=== PATIENT | female | born 1945 | race Caucasian/White ===

== ENCOUNTER 2017-11-28 14:23 | Inpatient (IN) | payer OTHER ==
[~2017-11-28] VITALS: Ht 157.5 cm; Wt 44.0 kg
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
--- NOTE | ~2017-11-28 | HC ---
[facility] [place] [address] [place] [address] CONSULTATION Name: ETELVINA DURAN [facility] #: 431[facility] M.[facility] [id number] Admission: 11/28/17 Attend Phys: Felipe Baez MD Discharge: 11/30/17 Date of : 44 Report #: [id number] THIS REPORT FOR: //name// CC: Felipe NUR unknown DATE OF SERVICE: 11/29/2017 REASON FOR CONSULTATION: Nonhealing surgical wound of hip with postsurgical infection, rule out osteomyelitis. HISTORY OF PRESENT ILLNESS: The patient is a 72-year-old woman, surgical patient of Dr. Harris. She is status post right hip surgery with total hip replacement with hip prosthesis by Dr. Harris. The patient's surgical wound never completely healed, and she has developed an open sinus type wound of the mid incision of the hip. This had some redness, pain, tenderness, swelling and drainage. The patient was therefore admitted. She is on IV antibiotics. PAST MEDICAL HISTORY: The patient is nondiabetic. REVIEW OF SYSTEMS: Pain at the incision site. PHYSICAL EXAMINATION: GENERAL: Shows a well-appearing woman, appearing her stated age. She is afebrile. The patient is alert, pleasant, conversant. HEENT: Mucous membranes are moist. NECK: Supple. LUNGS: Respirations unlabored. ABDOMEN: Soft. EXTREMITIES: Wound shows a long incision in the lateral right hip, mostly all the incision has healed. In the mid portion of the incision, there is a small 4 x 4 mm open wound with granulation tissue. This was probed with a cotton-tipped applicator. This has very little depth. Wound cultures are taken. The surrounding tissues are somewhat brawny, indurated, mildly tender and slightly red. IMPRESSION: Nonhealing surgical wound after total hip replacement, evidence of wound nonhealing and wound infection, rule out osteomyelitis. Orthopedic team has seen the patient. There are no plans for any surgical intervention at this time, and plan will be for continued IV antibiotics. Wound culture was taken at this time. There is no wound pack. Wound care will consist of a simple foam border dressing. We will await wound cultures. Further plans from the [facility] [address] [place] [address] CONSULTATION Name: ETELVINA DURAN Room #: 431-P DIS IN M.R.#: [id number] Admission: 11/28/17 Attend Phys: Felipe Baez MD Discharge: 11/30/17 Date of : 44 Report #: [id number] orthopedic team, which may consist of prolonged course of antibiotics. Wound care team will follow while in the hospital. By: [phone] Ladarius Mulligan MD /nt
[2017-11-28 14:41] VITALS: BP 135/56
[2017-11-28 15:51] LABS: ABSOLUTE NEUTROPHILS 11.2 thou/uL (1.4-8.2); BASOPHILS 0.6 % (0.0-2.0); EOSINOPHILS 0.6 % (0.0-3.0); HEMATOCRIT 26.8 % (37.0-47.0); HEMOGLOBIN 8.8 gm/dL (12.0-15.0); LYMPHOCYTES 9.8 % (24.0-44.0); MCH 28.5 pg (26.0-34.0); MCV 86.3 fL (80.0-100.0); MONOCYTES 10.1 % (1.0-8.0); PLATELET COUNT 485 thou/uL (150-400); POLYS 78.9 % (36.0-66.0); RDW 15.9 % (10.5-14.5); WBC 14.2 thou/uL (4.0-11.0)
[2017-11-28 16:00] LABS: CALCIUM 9.7 mg/dL (8.5-10.1); CREATININE 0.8 mg/dL (0.6-1.0); POTASSIUM 4.3 mmol/L (3.5-5.1)
[2017-11-28 17:19] VITALS: BP 135/56
[2017-11-28] MEDS ORDERED: ONDANSETRON ODT4 MG PO (17:22)
[2017-11-28 18:27] VITALS: BP 134/76
[2017-11-28] MEDS ORDERED: CLEOCIN HCL150 MG PO (18:30)
[2017-11-28] MEDS ORDERED: VENTOLIN HFA 1818 GM INH (18:30)
[2017-11-28] MEDS ORDERED: ASPIR-LOW81 MG PO (18:30)
[2017-11-28] MEDS ORDERED: SYNTHROID50 MCG PO (18:31)
[2017-11-28] MEDS ORDERED: BUSPIRONE HCL10 MG PO (18:31)
[2017-11-28] MEDS ORDERED: FOSAMAX 70 MG T70 MG PO (18:31)
[2017-11-28] MEDS ORDERED: ATIVAN1 MG PO (18:31)
[2017-11-28] MEDS ORDERED: MELATONIN3 MG PO (18:32)
[2017-11-28] MEDS ORDERED: PERCOCET 10-321 EACH PO (18:32)
[2017-11-28] MEDS ORDERED: MS CONTIN15 MG PO (18:32)
[2017-11-28] MEDS ORDERED: NAPROSYN500 MG PO (18:32)
[2017-11-28] MEDS ORDERED: ZANAFLEX4 MG PO (18:34)
[2017-11-28 20:00] VITALS: BP 143/55
[2017-11-29 05:30] VITALS: BP 134/78
[2017-11-29 06:33] LABS: HEMATOCRIT 26.7 % (37.0-47.0); HEMOGLOBIN 8.5 gm/dL (12.0-15.0); MCH 27.4 pg (26.0-34.0); MCV 85.8 fL (80.0-100.0); RBC 3.11 mil/uL (4.20-5.00); RDW 15.7 % (10.5-14.5); WBC 12.7 thou/uL (4.0-11.0)
[2017-11-29 06:50] LABS: CALCIUM 9.5 mg/dL (8.5-10.1); CREATININE 0.8 mg/dL (0.6-1.0); POTASSIUM 3.6 mmol/L (3.5-5.1)
[2017-11-29 06:56] LABS: % SATURATION 8 % (20-39); IRON 13 ug/dL (50-170); TIBC 154 ug/dL (250-450)
[2017-11-29 07:50] VITALS: BP 138/58
[2017-11-29 09:37] LABS: ABSOLUTE RETIC COUNT 0.0468 10^6/uL; OBSERVED RETIC COUNT 1.51 % (0.6-2.6)
[2017-11-29 15:30] VITALS: BP 127/56
[2017-11-29 20:03] VITALS: BP 152/73
[2017-11-30 05:00] VITALS: BP 148/72
[2017-11-30 07:50] VITALS: BP 188/85
== END 2017-11-30 19:51 | disposition short-term general hospital (02) | DRG 862 ==
LOC: ER 14:23 → EROBS 16:24 → 4E 16:24
PROVIDERS: Hospitalist; Physician Assistant; Registered Nurse
DX: T81.4XXA Infection following a procedure, initial encounter (principal); E43 Unspecified severe protein-calorie malnutrition; Z68.1 Body mass index [BMI] 19.9 or less, adult; B95.62 Methicillin resistant Staphylococcus aureus infection as the cause of diseases classified elsewhere; Z96.643 Presence of artificial hip joint, bilateral; J44.9 Chronic obstructive pulmonary disease, unspecified; M81.0 Age-related osteoporosis without current pathological fracture; F32.9 Major depressive disorder, single episode, unspecified; E03.9 Hypothyroidism, unspecified; D63.8 Anemia in other chronic diseases classified elsewhere; D72.829 Elevated white blood cell count, unspecified; G31.84 Mild cognitive impairment of uncertain or unknown etiology; R53.81 Other malaise; F41.9 Anxiety disorder, unspecified; G89.29 Other chronic pain; Y83.8 Other surgical procedures as the cause of abnormal reaction of the patient, or of later complication, without mention of misadventure at the time of the procedure; Z88.8 Allergy status to other drugs, medicaments and biological substances; Z85.118 Personal history of other malignant neoplasm of bronchus and lung; Z87.891 Personal history of nicotine dependence; Z79.899 Other long term (current) drug therapy; Y92.89 Other specified places as the place of occurrence of the external cause
CPT/HCPCS: 10183

== ENCOUNTER 2018-01-28 11:26 | Emergency (ER) | payer OTHER ==
[~2018-01-28] VITALS: Ht 157.5 cm; Wt 44.0 kg
--- NOTE | ~2018-01-28 | EKG ---
[place] [address] [facility] [employer] [place] [address] ELECTROCARDIOGRAM REPORT Name: ROGERETELVINA Room #: DEP MAURA Hernandez#: [id number] Admission: 01/28/18 Attend Phys: Discharge: 01/28/18 Date of : 44 Report #: [id number] THIS REPORT FOR: //name// [facility] ED Test Date: 2018-01-28 Test Time: 13:00:16 Pat Name: ETELVINA DURAN Department: Room: Gender: F Sales Clerk Supervisor: : 1945 Requested By: Aaron Du Order Number: [id number] MD: Rios Ellington Measurements Intervals [place] Rate: 77 P: 44 NC: 144 QRS: -24 QRSD: 83 T: 29 QT: 393 QTc: 445 Interpretive Statements Sinus rhythm Left ventricular hypertrophy No previous ECG available for comparison Electronically Signed On 01-28-2018 21:38:03 CDT by Rios Ellington [email or web address] <ELECTRONICALLY SIGNED> By: Rios Ellington MD 01/28/18 2138 1300 Chino Ellington MD /LEXX
[~2018-01-28 11:26] MED LIST: ASPIR-LOW81 MG PO; ATIVAN1 MG PO; BUSPIRONE HCL10 MG PO; CLEOCIN HCL150 MG PO; FOSAMAX 70 MG T70 MG PO; MELATONIN3 MG PO; MS CONTIN15 MG PO; NAPROSYN500 MG PO; ONDANSETRON ODT4 MG PO; PERCOCET 10-321 EACH PO; SYNTHROID50 MCG PO; VENTOLIN HFA 1818 GM INH; ZANAFLEX4 MG PO
[2018-01-28 12:00] LABS: ABSOLUTE NEUTROPHILS 9.5 thou/uL (1.4-8.2); BASOPHILS 0.8 % (0.0-2.0); EOSINOPHILS 1.4 % (0.0-3.0); HEMATOCRIT 32.3 % (37.0-47.0); HEMOGLOBIN 10.7 gm/dL (12.0-15.0); LYMPHOCYTES 13.2 % (24.0-44.0); MCH 28.3 pg (26.0-34.0); MCV 85.8 fL (80.0-100.0); MONOCYTES 8.9 % (1.0-8.0); PLATELET COUNT 330 thou/uL (150-400); POLYS 75.7 % (36.0-66.0); RBC 3.77 mil/uL (4.20-5.00); RDW 16.5 % (10.5-14.5); WBC 12.6 thou/uL (4.0-11.0)
[2018-01-28 12:06] LABS: ANION GAP 6 mmol/L (7-16); BUN 15 mg/dL (7-18); CALCIUM 9.2 mg/dL (8.5-10.1); CHLORIDE 101 mmol/L (98-107); CO2 29 mmol/L (21-32); CREATININE 0.7 mg/dL (0.6-1.0); GLUCOSE 129 mg/dL (74-106); POTASSIUM 3.3 mmol/L (3.5-5.1); SODIUM 136 mmol/L (136-145)
[2018-01-28 12:15] LABS: TROPONIN-I < 0.04 ng/mL (<0.06)
== END 2018-01-28 15:03 | disposition home or self-care (01) ==
LOC: ER 11:26
PROVIDERS: Emergency Medicine
DX: D64.9 Anemia, unspecified (principal); J44.9 Chronic obstructive pulmonary disease, unspecified; Z96.642 Presence of left artificial hip joint; Z85.118 Personal history of other malignant neoplasm of bronchus and lung; Z88.8 Allergy status to other drugs, medicaments and biological substances

== ENCOUNTER 2020-12-28 17:51 | Emergency (ER) | payer OTHER ==
[~2020-12-28] VITALS: Ht 157.5 cm; Wt 46.3 kg
--- NOTE | ~2020-12-28 | EMS ---
[place] [address] EMS Patient Care Report Name: ETELVINA DURAN Room #: REG MAURA Hernandez#: [id number] Admission: 12/28/20 Attend Phys: Discharge: Date of : 44 Report #: [id number] THIS REPORT FOR: //name// Report Transmitted: 12/28/2020 19:25 EMS Care Summary [facility], [place] Incident [id number] @ 12/28/2020 17:25 Incident Location [address] [place] [address] Patient ETELVINA DURAN Female, 75 Years 1945 Patient Address [address] [place] [address] Patient History Lung Cancer,Cardiac Murmur, Patient Allergies Sulfa, Patient Medications ASA, Chief Complaint PAIN Disposition Transported No Lights/[place] Dispatch Reason Falls Transported To [facility] Narrative RESPONDED TO FALL AT HOME WITH P36 ON SCENE. UPON ARRIVAL PT FOUND SITTING UP AGAINST WALL, ALERT AND ORIENTED. PT REPORTS TRIPPING OVER OXYGEN TANKS ADN HITTING HER HEAD ON ONE OF THEM. PT HAS MULTIPLE SKIN TEARS TO RIGHT ARM, SWELLING WITH LAC TO RIHT CHEEK BONE AND GOOSE EGG [place] [address] EMS Patient Care Report Name: ETELVINA DURAN Room #: REG MAURA Hernandez#: [id number] Admission: 12/28/20 Attend Phys: Discharge: Date of : 44 Report #: [id number] HEAD. PT DENIES LOC OR BLOOD THINNERS. PT DENIES NECK OR BACK PAIN. PT REPORTS RIGHT RIB PAIN WELL. PT TEAM CARRIED DOWNSTAIRS TO COT. PT VITALS AND 3 LEAD OBTAINED. PT TRANSPORTED TO [facility] WITH NO CHANGES. PT TEAM LIFTED TO BED FROM COT WITH HANDRAILS UP. REPORT GIVEN TO NURSE. Initial Vitals @17:40P: 46,SpO2: 82, @17:45P: 120,BP: 128/74,CO: 0,SpO2: 84, @17:42P: 136,SpO2: 84, @17:43P: 120,SpO2: 82, @17:42P: 128,SpO2: 83, @17:41P: 132,SpO2: 89, @17:41P: 142,R: 18,BP: 124/74,Pain: 10/10,GCS: 15,CO: 0,SpO2: 91,Revised Trauma: 12, Assessments @17:32MENTAL:Person Oriented,Time Oriented,Place Oriented,Event Oriented,SKIN:No Abnormalities,HEENT:Head/Face: Swelling,Head/Face: LAC,Head/Face: GUS,Neck/Airway: No Abnormalities,LUNG SOUNDS:General: No Abnormalities,Left Upper: No Abnormalities,Right Upper: No Abnormalities,Left Lower: No Abnormalities,Right Lower: No Abnormalities,ABDOMEN:General: No Abnormalities,Left Upper: No Abnormalities,Right Upper: No Abnormalities,Left Lower: No Abnormalities,Right Lower: No Abnormalities,PELVIS//GI:No Abnormalities,EXTREMITIES:Left Leg: Weakness,Right Arm: Other,Left Arm: Weakness,Right Arm: Weakness,Right Leg: Weakness,Right Arm: LAC,Right Arm: LAC,PULSE:NEURO:No Abnormalities, Impression Injury Procedures @17:32ALS AssessmentResponse: UnchangedSucceeded@17:413-Lead ECGResponse: UnchangedSucceeded@17:35C-Spine ClearanceResponse: Unchanged@17:35BandagingResponse: UnchangedSucceeded@17:36General CommentsResponse: Unchanged Timeline 17:23,Call Received 17:23,Dispatch Notified 17:25,Dispatched 17:26,En Route 17:30,On Scene 17:32,At Patient 17:32,ALS Assessment,Response: UnchangedSucceeded, 17:35,Bandaging,Response: UnchangedSucceeded, 17:35,C-Spine Clearance,Response: Unchanged [address] [address] EMS Patient Care Report Name: ETELVINA DURAN Room #: REG MAURA Hernandez#: [id number] Admission: 12/28/20 Attend Phys: Discharge: Date of : 44 Report #: [id number] 17:36,General Comments,Response: Unchanged 17:40,BP: / M,PULSE: 46,RR: R,SPO2: 82 Ox,ETCO2: ,BG: ,PAIN: ,GCS: , 17:41,BP: / M,PULSE: 132,RR: R,SPO2: 89 Ox,ETCO2: ,BG: ,PAIN: ,GCS: , 17:41,BP: 124/74 M,PULSE: 142,RR: 18 R,SPO2: 91 Ox,ETCO2: ,BG: ,PAIN: 10,GCS: 15, 17:41,3-Lead ECG,Response: UnchangedSucceeded, 17:42,BP: / M,PULSE: 136,RR: R,SPO2: 84 Ox,ETCO2: ,BG: ,PAIN: ,GCS: , 17:42,BP: / M,PULSE: 128,RR: R,SPO2: 83 Ox,ETCO2: ,BG: ,PAIN: ,GCS: , 17:43,BP: / M,PULSE: 120,RR: R,SPO2: 82 Ox,ETCO2: ,BG: ,PAIN: ,GCS: , 17:43,Depart Scene 17:45,BP: 128/74 M,PULSE: 120,RR: R,SPO2: 84 Ox,ETCO2: ,BG: ,PAIN: ,GCS: , 17:48,At Destination 17:57,Call Closed Disclaimer v1.1 Copyright 2020 [employer] This EMS Care Summary contains data elements from the applicable legal record (which may be displayed differently). It is designed to provide pertinent information for the following purposes: continuity of care, clinical quality, and state data reporting. The complete legal record is available to ED staff and administrators of the receiving hospital in [facility]'s Patient Tracker. All data is provided "as is."
[2020-12-28 18:24] LABS: HEMOGLOBIN 12.9 gm/dL (12.0-15.0)
[2020-12-28 18:25] LABS: HEMATOCRIT 38.9 % (37.0-47.0); MCH 31.8 pg (26.0-34.0); MCHC 33.2 g/dL (28.0-37.0); RBC 4.06 mil/uL (4.20-5.00); RDW 14.7 % (10.5-14.5); WBC 11.9 thou/uL (4.0-11.0)
[2020-12-28 18:47] LABS: URINE BILIRUBIN NEGATIVE (Negative); URINE BLOOD NEGATIVE (Negative); URINE CLARITY CLEAR; URINE COLOR YELLOW; URINE GLUCOSE-RANDOM* NEGATIVE (Negative); URINE KETONES NEGATIVE (Negative); URINE LEUKOCYTES-REFLEX NEGATIVE (Negative); URINE NITRITE-REFLEX NEGATIVE (Negative); URINE PROTEIN (DIPSTICK) NEGATIVE (Negative); URINE UROBILINOGEN 0.2 E.U./dl (0.2-1.0)
[2020-12-28 18:47] LABS: CALCIUM 9.8 mg/dL (8.5-10.1); CREATININE 1.1 mg/dL (0.6-1.0); POTASSIUM 4.4 mmol/L (3.5-5.1)
[2020-12-28 18:53] LABS: ALBUMIN 4.2 g/dL (3.4-5.0); TOTAL BILIRUBIN 0.5 mg/dL (0.2-1.0); TOTAL PROTEIN 7.6 g/dL (6.4-8.2)
[2020-12-28 21:56] VITALS: BP 150/118
== END 2020-12-28 22:02 | disposition home or self-care (01) ==
LOC: ER 17:51
PROVIDERS: Nurse Practitioner Family
DX: S01.411A Laceration without foreign body of right cheek and temporomandibular area, initial encounter (principal); S51.811A Laceration without foreign body of right forearm, initial encounter; S20.221A Contusion of right back wall of thorax, initial encounter; R10.11 Right upper quadrant pain; J44.9 Chronic obstructive pulmonary disease, unspecified; Z88.2 Allergy status to sulfonamides; Z79.82 Long term (current) use of aspirin; Z96.642 Presence of left artificial hip joint; Z85.118 Personal history of other malignant neoplasm of bronchus and lung; W18.30XA Fall on same level, unspecified, initial encounter; Y93.89 Activity, other specified; Y92.89 Other specified places as the place of occurrence of the external cause; Y99.9 Unspecified external cause status

== ENCOUNTER 2021-08-06 21:18 | Inpatient (IN) | payer OTHER ==
[~2021-08-06] VITALS: Ht 157.5 cm; Wt 50.5 kg
--- NOTE | ~2021-08-06 | EMS ---
[place] [address] EMS Patient Care Report Name: ETELVINA DURAN Room #: 207-P ADM IN M.R.#: [id number] Admission: 08/07/21 Attend Phys: Erci Campbell MD Discharge: Date of : 44 Report #: [id number] THIS REPORT FOR: //name// Report Transmitted: 08/10/2021 14:54 EMS Care Summary [place], [place] Incident [id number] @ 08/06/2021 20:40 Incident Location [address], [place] [address] Patient ETELVINA DURAN Female, 75 Years 1945 Patient Address [address] [place] [address] Patient History None Reported, Patient Allergies No known allergies, Patient Medications Morphine, Oxycodone, Chief Complaint shoulder pain, laceration 2nd for fall from 0 feet Disposition Transported No Lights/[place] Dispatch Reason Sick Person Transported To [facility] Narrative Upon arrival PT was laying in the supine position on bedroom floor. PT had a CC of left shoulder pain with a laceration above eye. Bleeding had been controlled prior to EMS arrival. Pain medication was withheld due to PT not being aware of when she had taken her last dose of "At home morphine and oxycodone" [place] [address] EMS Patient Care Report Name: ETELVINA DURAN Room #: 207-P [facility] IN ..#: [id number] Admission: 08/07/21 Attend Phys: Eric Campbell MD Discharge: Date of : 44 Report #: [id number] assisted to stretcher and was then taken to back of ambulance for further medical evaluation and intervention. PT was then monitored while en route to hospital for any change in condition. Initial Vitals @21:11P: 125,R: 18,BP: 162/100,Pain: 10/10,GCS: 15,CO: 8,SpO2: 83,Revised Trauma: 12, @21:13P: 126,R: 18,BP: 162/90,Pain: 10/10,GCS: 15,CO: 7,SpO2: 86,Revised Trauma: 12, Assessments @20:59MENTAL:No Abnormalities,SKIN:No Abnormalities,HEENT:Head/Face: Other,Eyes: No Abnormalities,Neck/Airway: No Abnormalities,LUNG SOUNDS:General: No Abnormalities,Left Upper: No Abnormalities,Right Upper: No Abnormalities,Left Lower: No Abnormalities,Right Lower: No Abnormalities,ABDOMEN:General: No Abnormalities,Left Upper: No Abnormalities,Right Upper: No Abnormalities,Left Lower: No Abnormalities,Right Lower: No Abnormalities,PELVIS//GI:No Abnormalities,EXTREMITIES:Capillary Refill: Left Upper: < 2 Sec,Capillary Refill: Right Upper: < 2 Sec,PULSE:Radial: 2+ Normal,NEURO:No Abnormalities, Impression Extremity Pain Procedures @20:58 ALS Assessment Response: UnchangedSucceeded @21:00 Spinal Motion Restriction Timeline 20:38,Call Received 20:38,Dispatch Notified 20:40,Dispatched 20:41,En Route 20:57,On Scene 20:58,At Patient 20:58,ALS Assessment,Response: UnchangedSucceeded, 21:00,Spinal Motion Restriction, 21:11,BP: 162/100 M,PULSE: 125,RR: 18 R,SPO2: 83 Ox,ETCO2: ,BG: ,PAIN: 10,GCS: 15, 21:12,Depart Scene 21:13,BP: 162/90 M,PULSE: 126,RR: 18 R,SPO2: 86 Ox,ETCO2: ,BG: ,PAIN: 10,GCS: 15, 21:16,At Destination 21:32,Call Closed [facility] [address] [place] [address] EMS Patient Care Report Name: ETELVINA DURAN Room #: 207-P ADM IN M.R.#: [id number] Admission: 08/07/21 Attend Phys: Eric Campbell MD Discharge: Date of : 43 Report #: [id number] Disclaimer v1.1 Copyright 2020 [employer] This EMS Care Summary contains data elements from the applicable legal record (which may be displayed differently). It is designed to provide pertinent information for the following purposes: continuity of care, clinical quality, and state data reporting. The complete legal record is available to ED staff and administrators of the receiving hospital in [employer]'s Patient Tracker. All data is provided "as is."
[2021-08-06 21:21] VITALS: BP 190/121
[2021-08-06 21:56] LABS: ABSOLUTE NEUTROPHILS 8.3 thou/uL (1.4-8.2); BASOPHILS 0.8 % (0.0-2.0); EOSINOPHILS 2.5 % (0.0-3.0); HEMATOCRIT 42.6 % (37.0-47.0); HEMOGLOBIN 13.7 gm/dL (12.0-15.0); LYMPHOCYTES 15.7 % (24.0-44.0); MCH 31.9 pg (26.0-34.0); MCHC 32.1 g/dL (28.0-37.0); MCV 99.4 fL (80.0-100.0); MONOCYTES 9.2 % (1.0-8.0); PLATELET COUNT 212 thou/uL (150-400); POLYS 71.8 % (36.0-66.0); RBC 4.28 mil/uL (4.20-5.00); RDW 13.3 % (10.5-14.5); WBC 11.5 thou/uL (4.0-11.0)
[2021-08-06 22:11] LABS: CALCIUM 9.5 mg/dL (8.5-10.1); CREATININE 1.2 mg/dL (0.6-1.0); POTASSIUM 4.1 mmol/L (3.5-5.1)
[2021-08-06] MEDS ORDERED: SERTRALINE HCL100 MG PO (23:33)
[2021-08-06] MEDS ORDERED: LEVO-T25 MCG PO (23:34)
[2021-08-06] MEDS ORDERED: MORPHINE SULFAT30 M1 PO (23:34)
[2021-08-06] MEDS ORDERED: PERCOCET 5-3251 EACH PO (23:35)
[2021-08-06] MEDS ORDERED: ADVAIR 250-501 EACH INH (23:35)
[2021-08-06 23:36] LABS: URINE BILIRUBIN NEGATIVE (Negative); URINE BLOOD NEGATIVE (Negative); URINE CLARITY SL CLOUDY; URINE COLOR YELLOW; URINE GLUCOSE-RANDOM* NEGATIVE (Negative); URINE KETONES NEGATIVE (Negative); URINE LEUKOCYTES-REFLEX TRACE (Negative); URINE NITRITE-REFLEX NEGATIVE (Negative); URINE PROTEIN (DIPSTICK) NEGATIVE (Negative); URINE SPECIFIC GRAVITY 1.015 (1.005-1.035); URINE UROBILINOGEN 0.2 E.U./dl (0.2-1.0)
[2021-08-06] MEDS ORDERED: FOSAMAX 70 MG T70 MG PO (23:37)
[2021-08-06] MEDS ORDERED: ACID REDUCER20 MG PO (23:38)
[2021-08-06] MEDS ORDERED: PREMARIN30 GM (23:39)
[2021-08-06] MEDS ORDERED: BACTRIM 400-801 EACH PO (23:39)
[2021-08-07 01:09] VITALS: BP 136/89
[2021-08-07 03:09] VITALS: BP 146/92
[2021-08-07 07:42] VITALS: BP 136/82
--- NOTE | 2021-08-07 08:08 | NUR ---
PATIENT ARRIVED ON UNIT AROUND 0300 IN UNCONTROLLED PAIN. LEFT SHOULDER FRACTURE, SHOULDER FX GENERATING UNCONTROLLED PAIN.
--- NOTE | 2021-08-07 08:46 | NUR ---
REFER TO OT VARIANCE
[2021-08-07 11:30] VITALS: BP 121/85
[2021-08-07 15:50] VITALS: BP 121/62
--- NOTE | 2021-08-07 19:28 | NUR ---
PATIENT ANXIOUS AND COMPLAINS OF CONSTANT PAIN WITH MINIMAL RELIEF WITH ANY PAIN MEDICATIONS. PATIENT REGULARLY GIVEN PAIN, NAUSEA AND ANXIETY MEDS THROUGHOUT DAY. PATIENT HAS A SHOULDER IMMOBILIZER IN PLACE AND REFUSES TO KEEP HER LEFT LOWER ARM ATTACHED, MOVING FREQUENTLY. PATIENT IS MORE CALM WITH FAMILY IN THE ROOM AND STARTS YELLING OUT SOON THEY LEAVE. PT IN BED WITH CALL LIGHT WITHIN REACH OF RIGHT ARM. CONTINUE TO MONITOR.
[2021-08-07 20:15] VITALS: BP 107/70
[2021-08-08 04:34] LABS: CALCIUM 8.5 mg/dL (8.5-10.1); CREATININE 0.8 mg/dL (0.6-1.0); POTASSIUM 3.7 mmol/L (3.5-5.1)
[2021-08-08 04:45] VITALS: BP 138/78
[2021-08-08 05:59] LABS: HEMATOCRIT 36.8 % (37.0-47.0); HEMOGLOBIN 12.1 gm/dL (12.0-15.0); MCH 32.7 pg (26.0-34.0); MCHC 32.9 g/dL (28.0-37.0); MCV 99.3 fL (80.0-100.0); RBC 3.7 mil/uL (4.20-5.00); RDW 13.5 % (10.5-14.5); WBC 10.5 thou/uL (4.0-11.0)
--- NOTE | 2021-08-08 06:40 | NUR ---
PATIENT RESTING IN HER ROOM AAOX2. PATIENT YELLS OUT LOUS SEVERAL TIMES. SHE IS VERY CONFUSED. STATES THAT SHE DOES NOT KNOW WHERE HER WENT TO. STATES THAT SHE DID NOT KNOW WHERE SHE IS. REORIENTED PT TO HER SURROUNDINGS. SHE STATES THAT SHE HAS PAIN EVERYWHERE AND HER MEDS ARE NOT HELPING. PATIENT HAS RECEIVED MULTIPLE PAIN MEDICATIONS THROUGHOUT THE DAY. SHE EVENTUALLY CALMED DOWN AND WAS ABLE TO SLEEP FOR ABOUT 5 HOURS. HER VITAL ARE STABLE. NO DISTRESS NOTED. WILL CONTINUE TO MONTITOR FOR CHANGES IN STATUS.
[2021-08-08 08:00] VITALS: BP 147/74
--- NOTE | 2021-08-08 10:35 | NUR ---
TOOK OVER CARE OF THE PATIENT AT 0700. PT IN BED BUT YELLING OUT DUE TO PAIN. PAIN MEDICATION ADMINISTERED PRN. PT AX0X1; VERY CONFUSED AND REQUIRES FREQUENT REORIENTATION. PT HX OF ANXIETY. PT REQUIRING 6 L OXYGEN VIA NASAL CANNULA. PT HIGH FALL RISK; FALL PRECAUTIONS IN PLACE. 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
--- NOTE | 2021-08-08 10:37 | NUR ---
REFER TO OT VARIANCE THIS DAY. OT HOLDING EVAL UNTIL 08/10 SURGERY STILL UNDECIDED PER AND HE WANTS IT
[2021-08-08 11:30] VITALS: BP 85/60
--- NOTE | 2021-08-08 13:09 | NUR ---
PT CONTINUES TO CRY OUT WITH PAIN EVEN THOUGH PRN PAIN MEDICATION AND ANXIETY MEDICATION ADMINISTERED REGULARLY. NEW ORDERS RECEIVED FROM DR. HAMMER.
[2021-08-08 15:00] VITALS: BP 109/58
[2021-08-08 19:59] VITALS: BP 108/62
--- NOTE | 2021-08-08 22:14 | NUR ---
PATIENT IN HER ROOM. PATIENT YELLING OUT OF HER ROOM AT START OF SHIFT. AM NURSE ASSESSED PATIENT. SHE IS COMPLAINIG OF PAIN AGAIN. NOTED THAT SHE HAS RECEIVED MULTIPLE PAIN MEDICATIONS FROM MULTIPLE DRUG CATEGORIES. DURING THIS HS SHIFT PATIENT IS FORGETFUL AND IRRITABLE. SHE RETETATIVELY YELLS OUT OR HITS THE CALL PARDO. SHE WANTS MORE MEDICATIONS AND DOES NOT COMPREHEND THAT SHE CAN ONLY HAVE THEM ACCORDING TO THE ORDERS ON THE MAR. SHE ALSO ASKS THE SAME QUESTIONS EACH TIME SHE SPEAKS WITH STAFF. PT IS ON 6L NC AND 92%. SHE DOES NOT FOLLOW SIMPLE COMMANDS. ALL SAFETY PRECAUTIONS ARE IN PLACE. WILL CONTINUE TO MONITOR.
[2021-08-09 06:17] VITALS: BP 139/75
[2021-08-09 08:05] VITALS: BP 153/92
[2021-08-09 15:46] VITALS: BP 99/71
[2021-08-09 19:35] VITALS: BP 121/74
[2021-08-09 20:22] VITALS: BP 123/62
--- NOTE | 2021-08-10 03:18 | NUR ---
PATIENT HAS SHOWN NO CHANGES IN BEHAVIOR. SHE CONTINUES TO EXHIBIT IMPULSIVE BEHAVIORS. SHE IS ROUTINELY ON THE CALL PARDO AND SCREAMING OUT OF HER ROOM. SHE IS CONFUSED AT TIMES. SHE STATES THAT SHE NEEDED TO CALL 911 AND BE TAKEN BACK TO HER BED. SHE COMPLAINS OF PAIN THROUGHOUT THE SHIFT. EXHIBITS SOME DIFFICULTY WITH SHORT TERM MEMORY. SHE IS NOW ON 10L NC. HER 02 WAS 87% ON 8L. WHEN PATIENT FOCUSES ON HER BREATHING SHE IS ABLE TO MAINTAIN SATURATION >92. WILL CONTINUE TO MONITOR FOR CHANGES IN PATIENT STATUS.
[2021-08-10 03:36] VITALS: BP 118/64
--- NOTE | 2021-08-10 07:13 | EKG ---
[address] [place] [address] ELECTROCARDIOGRAM REPORT Name: ETELVINA DURAN Room #: 207-P ADM IN M.R.#: [id number] Admission: 08/07/21 Attend Phys: Eric Campbell MD Discharge: Date of : 43 Report #: [id number] [facility] ED Test Date: 2021-08-06 Test Time: 21:33:24 Pat Name: ETELVINA DURAN Department: Room: 207 P Gender: F Detective Sergeant: STACIA : 1945 Requested By: Tereso Domingo Order Number: [id number] : Patrick Montez Measurements Intervals [place] Rate: 113 P: 82 MN: 160 QRS: -15 QRSD: 88 T: 85 QT: 348 QTc: 478 Interpretive Statements Sinus tachycardia Atrial premature complexes Borderline left axis deviation Low voltage, precordial leads Abnormal Q suggests anterior infarct Nonspecific repol abnormality, diffuse leads Borderline prolonged QT interval Baseline wander in lead(s) I,II,aVR,aVL,V2 Compared to ECG 01/28/2018 13:00:16 Atrial premature complex(es) now present Low QRS voltage now present Electronically Signed On 08-10-2021 7:13:23 [employer]AD[employer] GRINDER by Patrick Montez [email or web address] <ELECTRONICALLY SIGNED> By: Patrick Montez MD, FACC 08/10/21712 32 32 Patrick Montez MD, [facility] /EPI
[2021-08-10 07:41] VITALS: BP 152/94
[2021-08-10 08:45] VITALS: BP 152/94
--- NOTE | 2021-08-10 08:51 | NUR ---
WOUND CONSULT; I WAS CONSULTED FOR A COCCYX WOUND. I FOUND NO COCCYX WOUND. THE PATIENT HAD A FALL AND HAS A SUTURED INSCISION THAT IS INTACT. THE PATIENT IS SOMEWHAT CONFUSED. RECOMMENDATIONS; -D/C FROM WOUND CARE RECONSULT IF NEEDED.
--- NOTE | 2021-08-10 15:14 | NUR ---
CONSULT FOR 5N ACUTE REHAB. PT REQUIRES PT/0T EVALUATIONS, PT CONFUSED AND IMPULSIVE AT THIS TIME AND REQUIRING 10L O2. WILL CONTINUE TO FOLLOW TO ADDRESS DISCHARGE PLAN APPROPRIATE. THANK YOU FOR THIS REFERRAL
[2021-08-10 15:39] VITALS: BP 127/69
--- NOTE | 2021-08-10 15:57 | NUR ---
PATIENT ADMITTED FOR S/P FALL WITH L SHOULDER PAIN. CHART REVIEWED AND CASE DISCUSSED WITH CARE TEAM. CM MET WITH PT THIS DAY. PTS DAUGHTER KATIE AT BEDSIDE. CM ROLE INTRODUCED. LEFT ARM IN IMMOBILIZER. PT LIVES AT HOME WITH HER . DAUGHTER KATIE REPORTS PT IS CONFUSED. PTS HAS A WALKER AND CANE BUT DOES NOT USE THEM. SHE HAS A SHOWER BENCH FOR THE SHOWER. DAUGHTER REPORTS PATIENT [facility] AND [facility] ABOUT 3 MO AGO. PT USES O2 4-6L/NC AT BASELINE PROVIDED THROUGH [facility]. 5N FOLLOWING FOR REHAB AT DISCHARGE. AWAITING THERAPY AND REHAB CONSULT EVAL. CM FOLLOWING.
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
[2021-08-10 20:15] VITALS: BP 109/64
[2021-08-11 04:44] VITALS: BP 141/93
[2021-08-11 05:01] LABS: CALCIUM 8.6 mg/dL (8.5-10.1); CREATININE 0.6 mg/dL (0.6-1.0); POTASSIUM 3.8 mmol/L (3.5-5.1)
[2021-08-11 05:02] LABS: HEMATOCRIT 35.1 % (37.0-47.0); HEMOGLOBIN 11.8 gm/dL (12.0-15.0); MCH 33.2 pg (26.0-34.0); MCHC 33.7 g/dL (28.0-37.0); MCV 98.4 fL (80.0-100.0); RBC 3.56 mil/uL (4.20-5.00); RDW 13.7 % (10.5-14.5); WBC 10.9 thou/uL (4.0-11.0)
--- NOTE | 2021-08-11 06:05 | NUR ---
PT is alert and oriented with lots of anxiety. She is also forgetful and confused. She requires alot of reassuarance. Immobilizer to left shoulder. [place] to d/d.Always rates pain in the 9 to 10 range.On 09/22l/nc satting at >98%-continuous pulse ox. She also has a congested cough. Pain managed by oral meds all thro shift. Pt was resting quietly most of the noc. Anti-anxiety timed and PRN given. Fall prec in place.Call light within rech.
[2021-08-11 08:30] VITALS: BP 132/81
[2021-08-11 09:41] VITALS: BP 132/81
--- NOTE | 2021-08-11 12:00 | NUR ---
5N ACCEPTED PT FOR REHAB SERVICES. KERRI BRANCH ACCOUNT EXECUTIVE SPOKE TO PT REGARDING TRANSFER TO REHAB. PT NOT AGREEABLE AT THIS TIME. HOWEVER, PT WAS NAUSEATED DURING CONVERSATION. WILL REVISIT WITH PT ONCE FEELING BETTER TO DETERMINE IF AGREEABLE TO REHAB SERVICES.
--- NOTE | 2021-08-11 12:36 | NUR ---
Pt would benefit from appetite stimulant
--- NOTE | 2021-08-11 18:05 | NUR ---
PATIENT CONTINUES TO AMBULATE PROGRESSIVELY. WENT TO BEDSIDE COMMODE. DISCONTINUED FERNANDES THIS AFTERNOON. PATIENT CONTINUES WITH PAIN MANAGEMENT WITH VARIOUS MEDICATIONS THROUGH OUT SHIFT. PT WORKED WITH PATIENT THIS MORNING WITH SUCCESS. PATIENT NEEDS REASSURANCE ABOUT REHABILITATION PROCESS AND WHEN DUE DATE. PATIENT COMPLAINS OF NEEDING BOWEL MOVEMENT SO GIVEN SUPPOSITORY AND PRN CONSTIPATION MEDICATION IS ON EMAR. DISCONTINUED NS D/T PATIENT CONSISTENTLY DRINKING LIQUIDS THROUGH OUT SHIFT. PATIENT COMPLAINED OF NAUSEA THIS MORNING SO GIVEN MEDICATION, CRACKERS, AND JAYJAY.
[2021-08-11 20:00] VITALS: BP 162/68
[2021-08-12 04:00] VITALS: BP 100/84
--- NOTE | 2021-08-12 04:51 | NUR ---
PT IS ALERT AND OREINTED X4. LUNGS ARE CLEAR TO DIMINISHED. COMPLAINS OF PAIN IN LEFT ARM. PAIN MEDS GIVEN SEE MAR FOR TIME OF ADMINSTRATION. PT ANXIOUS ON 5 LITTERS NASAL CANULA. ENCOURAGE PT TO TAKE PURSE LIP BREATHING BECAUSE SHE GETS SO ANXIOUS. ABDOMEN IS ROUND AND SOFT. BOWEL SOUNDS ACTIVE X4. BRUSING NOTED OVER LEFT SIDE OF FACE WITH SUTURES ABOVE EYE NOTED UPON ASSESSMENTS. CALL LIGHT WITHIN REACH IF NEEDS ASSISTANCE.
[2021-08-12 07:49] VITALS: BP 146/88
[2021-08-12 09:41] LABS: HEMATOCRIT 36.7 % (37.0-47.0); MCH 32.1 pg (26.0-34.0); MCHC 32.7 g/dL (28.0-37.0); RBC 3.75 mil/uL (4.20-5.00); RDW 13.2 % (10.5-14.5); WBC 11.8 thou/uL (4.0-11.0)
[2021-08-12 09:58] LABS: ALBUMIN 2.9 g/dL (3.4-5.0); CREATININE 0.7 mg/dL (0.6-1.0); MAGNESIUM 1.3 mg/dL (1.8-2.4); POTASSIUM 3.4 mmol/L (3.5-5.1); TOTAL BILIRUBIN 0.4 mg/dL (0.2-1.0); TOTAL PROTEIN 6.5 g/dL (6.4-8.2)
[2021-08-12 10:10] LABS: CALCIUM 9.4 mg/dL (8.5-10.1)
[2021-08-12] MEDS ORDERED: PROBIOTIC1 EAC1 PO (11:11)
[2021-08-12] MEDS ORDERED: MIRALAX17 GM PO (11:11)
[2021-08-12] MEDS ORDERED: IPRAT-ALBUT 0.5-3 ML INH (11:11)
[2021-08-12] MEDS ORDERED: METHOCARBAMOL750 MG PO (11:11)
[2021-08-12] MEDS ORDERED: PULMICORT0.5 MG/22 INH (11:11)
[2021-08-12] MEDS ORDERED: ENOXAPARIN30 MG/0.3 SUBQ (11:11)
--- NOTE | 2021-08-12 15:23 | NUR ---
PT MEDICALLY STABLE TO DISCHARGE TO 5N TODAY. PATIENT AND PTS AT BEDSIDE AGREEABLE TO MOVE TODAY. RN AWARE AND REPORT THEY HAVE CALLED HER AND SHE HAS ALREADY GIVEN REPORT. NO FUTHER CM INTERVENTIONS AT THIS TIME.
--- NOTE | 2021-08-12 15:58 | NUR ---
Pt A & O x3. Pt VS stable. Pt received medications as ordered and also received PRN medications. Pt is on 6Lof 02 per nasal cannula. Pt is x1-2 assist with ADLs and cares. Pt has sling in place to L arm. pt is SA on the tele. Pt worked with PT/OT this shift. Pt is able to make needs known. Pt received discharge orders to inpt rehab. Pt will transfer by bed with personal belongings.
--- NOTE | 2021-08-14 07:04 | HC ---
[facility] [place] [address] CONSULTATION Name: ETELVINA DURAN Room #: 207-[facility] IN M.R.#: [id number] Admission: 08/07/21 Attend Phys: Eric Campbell MD Discharge: 08/12/21 Date of : 43 Report #: [id number] THIS REPORT FOR: cc: FAM - Family physician unknown FAM - Family physician unknown Tamara Soriano MD ~ DATE OF SERVICE: 08/07/2021 ORTHOPEDIC CONSULT REASON FOR CONSULTATION: Left proximal humerus fracture. HISTORY OF PRESENT ILLNESS: The patient is a 75-year-old female who was changing her shirt yesterday, lost her balance and fell. She fell onto her left side, was taken to the Emergency Department via EMS. She had a laceration above her left eye that was sutured in the Emergency Department, and she was diagnosed with a left essentially nondisplaced proximal humerus fracture. REVIEW OF SYSTEMS: NEUROLOGIC: Denies numbness or tingling. MUSCULOSKELETAL: See HPI. Denies any other extremity complaints. 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 She cannot recall the surgeon's name who is managing this, COPD, history of lung cancer, right lung nodule, hypothyroidism. PAST SURGICAL HISTORY: Right hip replacement, Left hip replacement, left lung lobectomy, partial thyroidectomy. SOCIAL HISTORY: Lives at home with her , uses a walker occasionally. Denies smoking or drinking alcohol. She did have a longstanding smoking history. LABORATORY STUDIES: On 08/06/2021 show white blood cell count 11.5, hemoglobin 13.7, hematocrit is 42.6, platelet count 212. Chemistry: Sodium is 134, BUN and creatinine is slightly elevated at 1.2. COVID negative. PHYSICAL EXAMINATION: GENERAL: The patient is awake, alert and oriented. She is in mild to moderate amount of distress. She is upset about falling, but her pain is controlled. VITAL SIGNS: Show a temperature of 36.9, heart rate 99, blood pressure 146/92, pulse oximetry is 90% on 6 liters of nasal cannula. She interacts well. She converses well. She is a thin, well-developed, well-nourished female. EXTREMITIES: Examination of her bilateral hands, she is distally [facility] [address] [place] [address] CONSULTATION Name: ETELVINA DURAN Room #: 207-[facility] IN ..#: [id number] Admission: 08/07/21 Attend Phys: Eric Campbell MD Discharge: 08/12/21 Date of : 43 Report #: [id number] neurovascularly intact. Brisk capillary refill, grossly normal, motor and sensory intact. Skin is clean, dry and intact. Her left upper extremity is in a shoulder immobilizer and she has tenderness at the proximal humerus. There is no other tenderness to the bilateral upper extremities. Bilateral lower extremities, she is grossly sensory and neuro is intact. She moves them without any pain. FINDINGS: AP and lateral of the left humerus shows an essentially nondisplaced proximal humerus fracture. CT scan of the pelvis did not show any acute fracture. IMPRESSION AND PLAN: Left proximal humerus fracture essentially nondisplaced. I discussed this with the patient and discussed with her that she does not need any surgical treatment, but will need time to heal. I will recommend having her continue with the immobilizer. One of my [facility] [place] [facility] [place] partners will see her if she is in this weekend once or twice. Questions were encouraged and answered to the best of my ability. <ELECTRONICALLY SIGNED> By: Tamara Soriano MD 08/14/21 [id number] Tamara Soriano MD /nt
== END 2021-08-12 16:40 | DRG 562 ==
LOC: ER 21:18 → 2N 08-07 00:58 → EROBS 08-07 00:58 → 2N 08-07 02:58
PROVIDERS: Hospitalist; Internal Medicine; Nurse Practitioner Family; Student in an Organized Health Care Education/Training Program; ADMIT Hospitalist; ATTEND Hospitalist
PROC: 5A0945A Assistance with Respiratory Ventilation, 24-96 Consecutive Hours, High Flow/Velocity Cannula (ICD-10-PCS; principal; 2021-08-09)
DX: S42.202A Unspecified fracture of upper end of left humerus, initial encounter for closed fracture (principal); E43 Unspecified severe protein-calorie malnutrition; J96.11 Chronic respiratory failure with hypoxia; E87.1 Hypo-osmolality and hyponatremia; Z96.642 Presence of left artificial hip joint; J44.9 Chronic obstructive pulmonary disease, unspecified; S01.81XA Laceration without foreign body of other part of head, initial encounter; Z96.643 Presence of artificial hip joint, bilateral; E89.0 Postprocedural hypothyroidism; F32.9 Major depressive disorder, single episode, unspecified; M81.0 Age-related osteoporosis without current pathological fracture; R91.1 Solitary pulmonary nodule; G89.4 Chronic pain syndrome; R53.81 Other malaise; Z20.822 Contact with and (suspected) exposure to COVID-19; N39.46 Mixed incontinence; R63.4 Abnormal weight loss; Z85.118 Personal history of other malignant neoplasm of bronchus and lung; Z88.2 Allergy status to sulfonamides; Z88.8 Allergy status to other drugs, medicaments and biological substances; Z87.891 Personal history of nicotine dependence; Z80.1 Family history of malignant neoplasm of trachea, bronchus and lung; Z86.14 Personal history of Methicillin resistant Staphylococcus aureus infection; Z68.20 Body mass index [BMI] 20.0-20.9, adult; Z23 Encounter for immunization; W18.39XA Other fall on same level, initial encounter; Y93.89 Activity, other specified; Y92.89 Other specified places as the place of occurrence of the external cause; Y99.8 Other external cause status
CPT/HCPCS: 10081

== ENCOUNTER 2021-08-12 11:59 | Inpatient (IN) | payer OTHER ==
[~2021-08-12] VITALS: Ht 157.5 cm; Wt 104.3 kg
[~2021-08-12 11:59] MED LIST changes: +ACID REDUCER20 MG PO; +ADVAIR 250-501 EACH INH; +BACTRIM 400-801 EACH PO; +ENOXAPARIN30 MG/0.3 SUBQ; +IPRAT-ALBUT 0.5-3 ML INH; +LEVO-T25 MCG PO; +METHOCARBAMOL750 MG PO; +MIRALAX17 GM PO; +MORPHINE SULFAT30 M1 PO; +PERCOCET 5-3251 EACH PO; +PREMARIN30 GM; +PROBIOTIC1 EAC1 PO; +PULMICORT0.5 MG/22 INH; +SERTRALINE HCL100 MG PO
--- NOTE | 2021-08-12 16:10 | NUR ---
patient admits to acute rehab unit 5N with humerus fracture. Spoke with patient and spouse. patient resides in home with spouse. She has 3 steps to enter home and 7 steps to bedroom. Patient has handrail for steps and usually does well until recent fall. Patient has walker and cane by her bed as needed. She has home oxyge with [employer] 4 liters at rest and 6 liters with activity. Patient also has shower chair. Her dtr works at [employer]. PCP Dr Yohana Michele. Patient has rec HH care from [facility] in past and agreeable to use again at ma. Reviewed with spouse team conference and dc planning with acute rehab. casemgt following.
[2021-08-12 17:31] VITALS: BP 119/81
[2021-08-12 19:15] VITALS: BP 110/78
--- NOTE | 2021-08-13 00:07 | NUR ---
PT ALERT AND ORIENTED X 4, CONFUSED AT TIMES. UP TO BSC WITH MOD ASSIST X 1. 02 ON AT 5L PER NC CONT. LEFT ARM IN SLING. LORAZEPAM GIVEN AT START OF SHIFT PER PT REQUEST FOR ANXIETY. PT HAS SUTURES ABOVE LEFT EYE AND THEY ARE C/D/I. BRUISING NOTED TO LEFT SIDE OF FACE. PT REPORTS PAIN IN LEFT ARM. OXYCODONE GIVEN LAST EVENING BY DAY SHIFT NURSE. NO REQUESTS FOR PAIN MEDS SO FAR TONIGHT. BED ALARM ON FOR SAFETY. PT APPEARS TO BE SLEEPING ON HOURLY ROUNDS.
[2021-08-13 07:20] VITALS: BP 137/92
--- NOTE | 2021-08-13 13:12 | NUR ---
Team, recommendation: increase pain with mobility. labs today. moderate to severe cognition and memory. Spouses assist with finances and medication at home. Re team .
[2021-08-13 15:40] LABS: HEMATOCRIT 39.5 % (37.0-47.0); HEMOGLOBIN 12.8 gm/dL (12.0-15.0); MCH 31.8 pg (26.0-34.0); MCHC 32.3 g/dL (28.0-37.0); MCV 98.2 fL (80.0-100.0); RBC 4.02 mil/uL (4.20-5.00); RDW 13.4 % (10.5-14.5)
[2021-08-13 16:02] LABS: ALBUMIN 3.1 g/dL (3.4-5.0); CALCIUM 9.5 mg/dL (8.5-10.1); CREATININE 0.8 mg/dL (0.6-1.0); MAGNESIUM 1.4 mg/dL (1.8-2.4); POTASSIUM 4.6 mmol/L (3.5-5.1); TOTAL BILIRUBIN 0.4 mg/dL (0.2-1.0); TOTAL PROTEIN 6.7 g/dL (6.4-8.2)
[2021-08-13 19:22] VITALS: BP 122/68
[2021-08-13 22:51] LABS: URINE BILIRUBIN NEGATIVE (Negative); URINE BLOOD NEGATIVE (Negative); URINE CLARITY CLEAR; URINE COLOR YELLOW; URINE GLUCOSE-RANDOM* NEGATIVE (Negative); URINE KETONES NEGATIVE (Negative); URINE LEUKOCYTES-REFLEX TRACE (Negative); URINE NITRITE-REFLEX NEGATIVE (Negative); URINE PROTEIN (DIPSTICK) NEGATIVE (Negative); URINE SPECIFIC GRAVITY <= 1.005 (1.005-1.035); URINE UROBILINOGEN 0.2 E.U./dl (0.2-1.0)
[2021-08-14 07:30] VITALS: BP 119/88
[2021-08-14 08:08] LABS: BASOPHILS 0.8 % (0.0-2.0); EOSINOPHILS 3.8 % (0.0-3.0); HEMATOCRIT 38.7 % (37.0-47.0); HEMOGLOBIN 12.6 gm/dL (12.0-15.0); MCH 32.1 pg (26.0-34.0); MCHC 32.6 g/dL (28.0-37.0); MCV 98.4 fL (80.0-100.0); MONOCYTES 11.7 % (1.0-8.0); PLATELET COUNT 227 thou/uL (150-400); POLYS 67.7 % (36.0-66.0); RBC 3.93 mil/uL (4.20-5.00); RDW 13.6 % (10.5-14.5); WBC 7.4 thou/uL (4.0-11.0)
[2021-08-14 08:57] LABS: ALBUMIN 3.2 g/dL (3.4-5.0); CALCIUM 9.8 mg/dL (8.5-10.1); CREATININE 0.7 mg/dL (0.6-1.0); MAGNESIUM 1.6 mg/dL (1.8-2.4); TOTAL BILIRUBIN 0.5 mg/dL (0.2-1.0); TOTAL PROTEIN 6.7 g/dL (6.4-8.2)
[2021-08-14 19:24] VITALS: BP 110/557; BP 110/57
--- NOTE | 2021-08-14 19:44 | NUR ---
PT REMAINS ALERT AND ORIENTED X 4, ALTHOUGH IS FORGETFUL AT TIMES AND DOES BECOME CONFUSED. USES CALL LIGHT FREQUENTLY AND IS NOTED TO DISPLAY SOME ATTENTION SEEKING BEHAVIORS. PAIN MEDICATIONS ONLY SOMEWHAT EFFECTIVE FOR PAIN CONTROL. OFTEN TIMES, PT FORGETS THAT NURSE HAS ADMINISTERED PAIN MEDS ONLY A SHORT TIME AGO.
--- NOTE | 2021-08-15 02:50 | NUR ---
assumed care approx 1900 evening 08/14. pt assist to bathroom to void. left arm in sling and pt uses cane when ambulating. pt with some anxiety and given prn xanax as ordered. pt also given pain meds as requested. pt appears to be sleeping soundly. bed alarm on and call light in reach. will continue to monitor.
--- NOTE | 2021-08-15 14:56 | NUR ---
REMAINS ALERT AND ORIENTED, HOWEVER, CONTINUES WITH FORGETFULNESS AND INTERMITTENT CONFUSION. UNABLE TO GIVE PT PERCOCET THAT SHE REQUESTED IN LATE MORNING AND EARLY AFTERNOON DUE TO HER BP RUNNING 80'S OVER 40'S TO 90'S OVER 50'S. ENCOURAGED PT TO DRINK MORE WATER AND EXPLAINED REASONING BEHIND NOT GIVING HER PAIN MEDICATION. PT VERBALIZED UNDERSTANDING. BP AT 1350 WAS 93/53. WILL CONTINUE TO MONITOR PRIOR TO GIVING ANY PAIN MEDICATION.
--- NOTE | 2021-08-15 15:29 | NUR ---
PT REQUESTED PAIN MEDICATION AGAIN. BP 133/67. PERCOCET GIVEN AT 1325.
[2021-08-15 20:07] VITALS: BP 113/73
--- NOTE | 2021-08-16 05:26 | NUR ---
ASSUMED CARE OF PT AT 1920 ON 08/15/20. PT IS A&O TO SELF & SITUATION & CONFUSED. IS STABLE. REPORTS LEFT ARM PAIN THAT IS BEING MANAGED WITH ORAL PAIN MEDS & OTHER THERAPUETIC TECHNIQUES. LABS & VITALS REVIEWED. PT IS UP WITH 1 ASSIST, PAT, TO BSC. FALL PRECAUTIONS & HOURLY ROUNDING CONTINUED THIS SHIFT. PT CURRENTLY SLEEPING. CALL LIGHT WITHIN REACH.
[2021-08-16 07:19] VITALS: BP 140/79
[2021-08-16 17:08] VITALS: BP 140/79
--- NOTE | 2021-08-16 18:22 | NUR ---
PT A&OX4 WITH CONFUSION AND FORGETFULLNESS. PT CALLS OUT FOR PAIN MEDICATION Q2 HOURS. THIS NURSE ENCOURAGED PT TO CALL OUT Q4 AND ASK FOR PAIN MEDICATION. WILL CONTINUE TO MONITOR.
[2021-08-16 19:48] VITALS: BP 102/71
--- NOTE | 2021-08-16 22:53 | NUR ---
PT ALERT AND ORIENTED X 4. AMB TO BR WITH QUAD CANE AND ASSIST X 1 WITHOUT DIFFICULTY. LEFT ARM IMMOBILIZER ON. 02 ON AT 4L PER NC CONT. PT C/O PAIN IN LEFT ARM. OXYCODONE GIVEN ORDERED. PT ALSO GIVEN LORAZEPAM AT HS PER HER REQUEST FOR ANXIETY. BED ALARM ON FOR SAFETY. PT APPEARS TO BE SLEEPING ON HOURLY ROUNDS.
[2021-08-17 07:52] LABS: ABSOLUTE NEUTROPHILS 5.9 thou/uL (1.4-8.2); BASOPHILS 0.9 % (0.0-2.0); EOSINOPHILS 1.8 % (0.0-3.0); HEMATOCRIT 39.2 % (37.0-47.0); HEMOGLOBIN 12.5 gm/dL (12.0-15.0); LYMPHOCYTES 16.9 % (24.0-44.0); MCH 31.8 pg (26.0-34.0); MCHC 31.9 g/dL (28.0-37.0); MCV 99.4 fL (80.0-100.0); MONOCYTES 9.9 % (1.0-8.0); PLATELET COUNT 276 thou/uL (150-400); POLYS 70.5 % (36.0-66.0); RBC 3.94 mil/uL (4.20-5.00); RDW 13.6 % (10.5-14.5); WBC 8.3 thou/uL (4.0-11.0)
[2021-08-17 08:00] VITALS: BP 144/89
[2021-08-17 08:01] LABS: ALBUMIN 3.1 g/dL (3.4-5.0); CALCIUM 9.5 mg/dL (8.5-10.1); CREATININE 0.7 mg/dL (0.6-1.0); MAGNESIUM 1.8 mg/dL (1.8-2.4); POTASSIUM 4.1 mmol/L (3.5-5.1); TOTAL BILIRUBIN 0.3 mg/dL (0.2-1.0); TOTAL PROTEIN 6.6 g/dL (6.4-8.2)
--- NOTE | 2021-08-17 14:19 | NUR ---
Cont. therapy and discuss during weekly team meeting orquidea.
[2021-08-17 19:00] VITALS: BP 122/65
--- NOTE | 2021-08-17 23:56 | NUR ---
ASSUMED CARE OF PT AT 1910. PT IS A&OX3. IS VERY ANXIOUS. IS 2L OF O2/NC. REPORTS PAIN IN LEFT ARM THAT IS BEING MANAGED WITH ORAL PAIN MEDS & OTHER THERAPUETIC TECHINQUES. IMMOBILIZER IN PLACE. PT IS STABLE. IS UP WITH 1 ASSIST, GB TO [facility]. FALL PRECAUTIONS & HOURLY ROUNDING CONTINUED THIS SHIFT. PT FREQUENTLY CALLS OUT INVESTMENT FUND MANAGER LIGHT EVEN WITH FREQUENT ROUNDING & THERAPUETIC COMMUNICATION. LABS & VITALS REVIEWED. PT HAS STRESS INCONTINENCE & INSISTED ON WEARING BRIEF TO BED.IS ABLE TO REPOSITION SELF SOME IN BED. IS ABLE TO SHIFT ON WEIGHT. IS CURRENTLY ASLEEP. CALL LIGHT WITHIN REACH. WILL CONTINUE TO MONITOR.
[2021-08-18 07:17] VITALS: BP 119/80
--- NOTE | 2021-08-18 12:41 | NUR ---
WOUND CARE CONSULT; THE PATIENT HAS STABLE SUTURES ABOVE THE LEFT EYE. THE DIRECTOR OF COUNTERINTELLIGENCE TODAY SAYS THE SUTURES WILL COM OUT TODAY. THE RN WILL DO THIS. NO NEEED TO FOLLOW.
[2021-08-18 20:00] VITALS: BP 127/71
--- NOTE | 2021-08-19 02:11 | NUR ---
assumed care approx 1900 evening 08/18. pt sitting up in bed at change of shift visiting with spouse at bedside. pt up to bathroom 3 times before hs voiding small amt. pt anxious and c/o pain to left arm. pt given anxiety med and pain meds and fell asleep late approx 2300. 02 at 5L per n/c. pt appears to be sleeping soundly at present. bed alarm on and call light in reach. will continue to monitor.
[2021-08-19 08:22] VITALS: BP 130/68
--- NOTE | 2021-08-19 09:28 | NUR ---
PT SITTING UP IN W/C THIS AM. PT HAS OXYGEN ON 2L NC. PT STATED SHE NEEDED TO HAVE PAIN MEDICATION. PT LEFT ARM IN A SLING. PT HAS SUTURES ABOVE LEFT EYE BROW. PT UP WITH QUAD CANE. PT ORIENTED TO SELF. PT TOOK MEDS THIS AM WITH WATER. PT UP WITH ASSIST TO W/C WHEN GOING TO BATHROOM.
--- NOTE | 2021-08-19 09:29 | NUR ---
ADM HYDROCODONE 7.5MG PO FOR PAIN TO LEFT SIDE OF 6 ON 1-10 SCALE.
--- NOTE | 2021-08-19 13:41 | NUR ---
PT RECIEVED HYRDOCODONE 7.5MG PO FOR PAIN AND ALSO METHOCARBANOL 500MG PO.
--- NOTE | 2021-08-19 14:11 | NUR ---
PT RECIEVED PAIN MED AND METHOCARBANOL, PT DIDN'T REMEMBER THAT SHE HAD PAIN MEDICATION 30MIN AFTER ADM. BROUGHT IN NURSE THAT ADMINISTERED MEDICATION AND PT STATED WHERE IS IT. PT DIDN'T REMEMBER TAKING THE MEDS.
--- NOTE | 2021-08-19 16:30 | NUR ---
ASSISTED PT TO BATHROOM VIA QUAD CANE, PT ABLE TO WALK WITHOUT ANY ISSUES. PT TOOK W/C BACK TO BEDSIDE. PT STATED SHE IS HURTING AND NEEDING PAIN MED. TOLD PT IT WAS ANOTHER HR, PT STATED THAT IS TOO LONG FOR PAIN.
--- NOTE | 2021-08-19 17:56 | NUR ---
ADM HYRDOCODONE 7.5MG PO FOR PAIN TO LEFT SIDE OF 7 ON 1-10 SCALE.
--- NOTE | 2021-08-19 19:13 | NUR ---
TOOK OUT SUTURES ABOVE LEFT EYE, SCAB IS ON AREA PT WANTED TO HAVE ANXIETY MEDICATION PRIOR TO REMOVING SUTURES. WILL PLACE STERI-STRIPS OVER INCISION AREA. ADM LORAZEPAM 1MG PO PER REQUEST.
[2021-08-19 20:00] VITALS: BP 101/51
--- NOTE | 2021-08-20 05:06 | NUR ---
ASSUMED CARE AT 1930 OF 08/19. PATIENT IS A&OX4, AND WAS RECEIVED WITH SPOUSE VISITING AT BEDSIDE AT START OF SHIFT. CONTINUES TO EXHIBIT ANXIETY, TIME AND SPACE PROVIDED FOR PATIENT TO EXPRESS THOUGHTS AND WORRIES. PATIENT IS REASSURED THAT AFTER TEAM MEETING D/C PLANS WILL BE BETTER CLARIFIED. PATIENT REPORTS PAIN IN LUE, WHICH IS MANAGED WITH PRN AND SCHEDULED PAIN MEDICATION. MODERATE ASSIST OF 1 WITH TRANSFERS AND AMBULATION, USING GAIT BELT AND QUAD CANE. IMMOBILIZER TO LUE. FALL PRECAUTIONS IN PLACE, CALL LIGHT WITHIN REACH. WILL CONTNUE TO MONITOR.
--- NOTE | 2021-08-20 05:58 | NUR ---
AT START OF SHIFT AROUND 08/19, PATIENT WAS VISITING WITH SPOUSE AND REQUESTED TO SEE THIS NURSE. PATIENT STATED THAT DUE TO WEATHER ADVISORY ON AM OF 08/20 HER SPOUSE WILL NOT BE ABLE TO COME IN FOR FAMILY TRAINING, IN FEAR OF POSSIBLE DANGEROUS DRIVING CONDITIONS. BOTH PATIENT AND SPOUSE ARE EDUCATED ON THE IMPORTANCE OF FAMILY TRAINING. SPOUSE STATES THAT HE HAS TAKEN CARE OF HER FOR YEARS AND THAT HE KNOWS HOW TO CARE FOR HER. SPOUSE IS REMINDED THAT SHE HAS NEW INJURIES THAT MAY REQUIRE DIFFERENT ACCOMODATIONS TO PERFORMANCE OF ADLS. PATIENT STATES MAYBE IF THE WEATHER ALLOWS LATER IN THE DAY HE CAN COME IN OR ON MONDAY 08/21. ON COMING SHIFT WILL BE NOTIFIED OF THIS.
[2021-08-20 09:10] VITALS: BP 104/65
--- NOTE | 2021-08-20 12:37 | NUR ---
team meeting, recommendation: spouse going to come for training with therapy tomorrow for immobilizer and transfers. Dc 08/25/21 with [facility] ( pt, ot, nursing ). needs peng walker or Pyramid cane.
[2021-08-20 20:07] VITALS: BP 139/85
--- NOTE | 2021-08-21 04:50 | NUR ---
ASSUMED CARE AT 1930 OF 08/20. PATIENT IS A&OX3, REORIENTED TO TIME. CONTINUES TO EXHIBIT ANXIETY, PRN LORAZEPAM ADMINISTERED PER PATIENT REQUEST. REPORTS PAIN LUE, PAIN MANAGED WITH SCHEDULED AND PRN PAIN MEDICATION. LUE REMAINS IN IMMOBILIZER. USES QUAD CANE TO TRANSFERS AND AMBULATE TO BATHROOM TO VOID, CLEAR YELLOW URINE. FALL PRECAUTIONS IN PLACE, CALL LIGHT WITHIN REACH. WILL CONTINUE TO MONTIOR.
[2021-08-21 08:00] VITALS: BP 139/85
--- NOTE | 2021-08-21 09:16 | NUR ---
PT SITTING UP IN W/C FOR BREAKFAST. PT STATED PAIN IS 10 ON 1-10 SCALE TO LUE. PT BEGGING FOR ASSISTANCE FOR PAIN CONTROL. ADM HYDROCODONE 7.5MG PO FOR PAIN TO LEFT ARM. PT HAS SLING ON LUE. PT LUNGS CLEAR OXYGEN ON AT 5L NC. PT LBM YESTERDAY. PT UP WITH STAND-BY ASSIST X1 WITH WALKER AND OR W/C.
--- NOTE | 2021-08-21 11:30 | NUR ---
ADM LORAZEPAM 1MG PO FOR ANXIETY.
--- NOTE | 2021-08-21 14:53 | NUR ---
ADM METHOCARBANOL 500MG PT FOR PAIN AND HYDROCODONE 7.5MG PO FOR PAIN TO LUE. PT DID REST FOR A LITTLE BIT THIS AFTERNOON.
[2021-08-21 20:43] VITALS: BP 119/82
--- NOTE | 2021-08-22 01:59 | NUR ---
assumed care approx 1900 evening 08/21. pt sitting up in bed at change of shift very anxious and restless. pt assist up to bathroom to void and pt calling out several times before hs. pt c/o being hot, needing to change, needing to loosen sling, etc. pt given hs meds including anxiety and pain meds. pt finally fell asleep approx 2300 and appears to be sleeping at present. bed alarm on and call light in reach. will continue to monitor.
[2021-08-22 08:00] VITALS: BP 140/83
--- NOTE | 2021-08-22 09:27 | NUR ---
PT UP TO W/C THIS AM FOR BREAKFAST. PT HAS OXYGEN ON 5L NC. PT STATED SHE HAS PAIN TO LEFT ARM, PT WANTING TO KNOW ABOUT HAVING A SLING INSTEAD OF THE SHOULDER IMMOBILIZER. PT STATED SHE HAD A SLING LAST TIME AND DIDN'T HAVE MUCH PAIN. PT RECIEVED METHADONE 500MG PO FOR PAIN. PT STATED THE PAIN MED DOESN HELP.
--- NOTE | 2021-08-22 13:39 | NUR ---
ADM LORAZEPAM 1MG PO FOR ANXIETY DUE TO PAIN.
--- NOTE | 2021-08-22 14:00 | NUR ---
DR. MCMAHON HERE TO TALK TO FAMILY AND PT OVER PAIN MEDS. MCKAYLA STATED SHE HAS BEEN ON OXYCODONE FOR A DECADE AND WE SHOULD NOT BE TAKING PAIN MEDS AWAY RENNY AT THIS TIME WHEN SHE IS IN PAIN. PT HYDROCODONE WAS STOPPED BY PRIMARY DR. STATED SHE TOOK OXY 10MG TWICE A DAY, MS 15MG TWICE A DAY, AND ZANAFLEX BEDTIME. DR. MCMAHON WILL RECHECK LEFT ARM VIA XRAY, AND ADD OXYCOCODONE, AND D/C METHADONE. HE DISCUSSED THAT IF PT IS TAKING XANAX AND ZANALEX TOGETHER, SHE COULD AND WILL FALL. UNDERSTOOD, HE JUST DOESN'T WANT HER HOME MEDS CHANGED WITHOUT TALKING TO HIM FIRST.
--- NOTE | 2021-08-22 15:06 | NUR ---
ADM OXYCODONE 5MG PO FOR PAIN TO LEFT ARM OF 8 ON 1-10 SCALE. ALSO RESTARTED HER HOME LACTOBACILIS, HOME MED IN MED DRAWER.
[2021-08-22 19:16] VITALS: BP 138/74
--- NOTE | 2021-08-23 00:57 | NUR ---
assumed care approx 1900 evening 08/21. pt anxious at change of shift calling out frequently for staff. pt concerned about pain meds being changed. this appeals writer listened to pt for long period of time and much emotional support given to pt. pt given hs meds and pt forgetful about taking her meds. pt appears to be sleeping at present. bed alarm on and call light in reach. will continue to monitor.
[2021-08-23 20:11] VITALS: BP 116/90
--- NOTE | 2021-08-24 01:53 | NUR ---
PT ALERT AND ORIENTED X 4, FORGETFUL. UP TO BATHROOM WITH ASSIST X 1. LEFT ARM IMMOBILIZER ON. PT C/O DISCOMFORT WITH ARM IMMOBILIZER. ADJUSTED SEVERAL TIMES THIS EVENING. PT C/O PAIN IN HER LEFT ARM. OXYCODONE AND LORAZEPAM GIVEN ORDERED. PT ALSO GETS SCHEDULED MS CONTIN. PT VERY ANXIOUS AT TIMES, CRYING. WAS CALLING OUT FREQUENTLY UNTIL LORAZEPAM GIVEN. 02 ON AT 4L PER NC CONT. SAT DROPS TO 80'S WHEN UP. 02 INCREASED TO 6L WITH ACTIVITY. RETURNED TO 4L AT REST WITH SAT 94%. BED ALARM ON FOR SAFETY. PT APPEARS TO BE SLEEPING ON HOURLY ROUNDS.
[2021-08-24 07:27] VITALS: BP 128/87
[2021-08-24 09:07] LABS: ABSOLUTE NEUTROPHILS 6.5 thou/uL (1.4-8.2); BASOPHILS 0.7 % (0.0-2.0); EOSINOPHILS 0.9 % (0.0-3.0); HEMATOCRIT 38.7 % (37.0-47.0); HEMOGLOBIN 12.6 gm/dL (12.0-15.0); LYMPHOCYTES 15.9 % (24.0-44.0); MCH 32.8 pg (26.0-34.0); MCHC 32.6 g/dL (28.0-37.0); MCV 100.5 fL (80.0-100.0); MONOCYTES 9.1 % (1.0-8.0); PLATELET COUNT 306 thou/uL (150-400); POLYS 73.4 % (36.0-66.0); RBC 3.85 mil/uL (4.20-5.00); RDW 14.3 % (10.5-14.5); WBC 8.9 thou/uL (4.0-11.0)
[2021-08-24 09:26] LABS: ALBUMIN 3.5 g/dL (3.4-5.0); CALCIUM 9.6 mg/dL (8.5-10.1); CREATININE 0.8 mg/dL (0.6-1.0); POTASSIUM 4.7 mmol/L (3.5-5.1); TOTAL BILIRUBIN 0.3 mg/dL (0.2-1.0); TOTAL PROTEIN 6.9 g/dL (6.4-8.2)
--- NOTE | 2021-08-24 12:00 | NUR ---
Cm notified by physical therapy that her spouse has the names of [facility] company she used before. cm visited with him, [facility] was good for therapy but never had a nurse with them and [facility] was good for nurse but therapy lacking. Referral to be sent to [facility] per william request.
[2021-08-24 16:12] VITALS: BP 128/87
[2021-08-24 21:24] VITALS: BP 124/62
--- NOTE | 2021-08-25 04:57 | NUR ---
Assumed care on 08/24/21 @ 1900, A&Ox4 confused but cooperative with care. VSS, takes meds whole. Left Humerus FX, wears imobilizer. Patient repeats that she wants to leave on 08/25 by noon. Full code, PRN Lorazepam 1mg provided with MS Contin and Tizantidine for pain in her left upper extremity. Oxycodone 5mg x2tabs provided @ 0300 for pain. On oxygen @ 4L via n/c. Toileted @ 0300 by BSC, continent with only urine output, no BM noted. When patient got back in bed she asked where she is, and demonstrated confusion. Bed alarm set, bed in low position, fall protocol in place, will continue to monitor as per unit protocol for safety and comfort.
[2021-08-25 07:15] VITALS: BP 130/88
[2021-08-25] MEDS ORDERED: ZANAFLEX4 MG PO (08:27)
[2021-08-25 08:56] VITALS: BP 128/87
[2021-08-25 11:58] VITALS: BP 128/87
--- NOTE | 2021-08-25 12:05 | NUR ---
Dc home today with [facility]. Provider plus already deliver the hemiwalker today. Spouse will be able to transport her home today around noon.
[2021-08-25] MEDS ORDERED: PERCOCET 5-3251 EACH PO (15:08)
[2021-08-25] MEDS ORDERED: MORPHINE SULFAT30 M1 PO (15:08)
[2021-08-25] MEDS ORDERED: OXYCODONE HCL10 MG PO (15:13)
--- NOTE | 2021-08-30 16:54 | HC ---
[facility] [place] [address] CONSULTATION Name: ETELVINA DUARN Room #: 505-[facility] IN M.R.#: [id number] Admission: 08/12/21 Attend Phys: Lm Wagner MD Discharge: 08/25/21 Date of : 43 Report #: [id number] THIS REPORT FOR: cc: BOOM - Family physician unknown FAM - Family physician unknown Fredo Powell PhD ~ DATE OF SERVICE: 08/21/2021 NEUROBEHAVIORAL STATUS EXAM ATTENDING PHYSICIAN: Lm Wagner MD BUSINESS DEVELOPMENT SALES EXECUTIVE: Fredo Powell, PhD CLINICAL PRESENTATION: The patient is a 75-year-old female admitted to the [facility] on 08/07/2021 with loss of balance and falls with trauma on the left side of her face and arm. On admission, she required sutures on the left side of her face and she also complained of left arm pain. Imaging revealed a nondispalced left proximal humerus fracture. Her medical problem list included abdominal wall contusion, anemia, closed fracture of the left proximal humerus, contusion of the thoracic wall, facial contusion, facial laceration, fall, head injury, humerus fracture, MRSA positive, rectal bleeding, skin tear of the right upper extremity, surgical wound infection, symptomatic anemia and tachycardia. A complete description of her medical condition and history can be found in her medical record. Her assessment on admission to the rehabilitation unit is closed head injury with forehead laceration and no loss of consciousness. Gait instability with recurrent falls, premorbid peripheral neuropathy, sciatic with radiculopathy, left humeral fracture, acute on chronic pain syndrome, chronic respiratory failure, lung cancer, depression/anxiety, chronic MRSA, PCM, constipation and hypomagnesemia. A complete description of her medical condition and history can be found in her medical record. Neuropsychological consultation was requested to provide assistance in the assessment of cognitive and emotional status and to provide recommendations and services. Prior to this most recent admission, she was living with the assistance of her in their home. The patient is reported to have discontinued driving about 15 years ago. Her has been managing medications and finances along with nutrition. The patient has had a gradual decrease in cognition over the last several years. She has two children. The patient is a high school graduate. 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 TECHNIQUES UTILIZED: Clinical interview, review of medical records, staff consultation and behavioral observation, mini mental status exam [facility] [address] [place] [address] CONSULTATION Name: ETELVINA DURAN Room #: 505-[facility] IN .R.#: [id number] Admission: 08/12/21 Attend Phys: Lm Wagner MD Discharge: 08/25/21 Date of : 43 Report #: [id number] version and family interview -- spouse. EXAMINATION PROCEDURE: The patient was alert and cooperative with the assessment. She is able to describe events surrounding her admission. Significant problems with memory are suggested. The patient has difficulty in maintaining an accurate recall of the extent of help that she has required. Her symptoms include sleep disturbance, anxiety, depression, memory and verbal fluency. Appetite is reported as within normal limits. There is no report of alcohol or drug abuse. She has been taking an antidepressant. Performance on the MMSE 2 brief version suggested mild to moderate impairment with a raw score of 13 and 16. She was 3/3 for initial registration, 5/5 for orientation to time and place. She was 0/3 for immediate recall of 3 items after a brief time delay and distraction. Performance on the MMSE 2 standard version was extremely low with a raw score of 20/30. She was 0/5 for serial 7s, 2/2 for naming, 1/1 for repetition, 3/3 for auditory comprehension. She could read and follow a single command. She was unable to write a sentence or copy a simple geometric design. The patient is presenting with deficits in immediate memory along with executive functioning. Her has been providing assistance with instrumental activities of daily living. DIAGNOSTIC IMPRESSION: 1. Major neurocognitive disorder (dementia), unspecified, without behavioral disturbance -- extent to be determined, likely in a mild to moderate range. 2. Unspecified anxiety disorder with depression. RECOMMENDATIONS: The patient will continue to benefit from Speech Therapy to assist in the development of compensatory strategies for variability in cognition. Assistance will be necessary for her to maintain independence in the community, which includes management of medication, finances and nutrition. Continue treatment for anxiety and depression that includes the use of an antidepressant. Psychiatric consultation may be of benefit to assist in selection of medication. The patient and her may benefit from a care home community in that reports difficulty for them in maintaining adequate nutrition because of cooking limitations. Thank you very much for allowing me to provide the consultation on this patient. <ELECTRONICALLY SIGNED> By: Fredo Powell, PhD 08/30/21 [id number] Fredo Powell, PhD /nt
== END 2021-08-25 11:50 | disposition home health service (06) | DRG 563 ==
PROVIDERS: Hospitalist; Nurse Practitioner; Nurse Practitioner Family; ADMIT Physical Medicine & Rehabilitation; ATTEND Physical Medicine & Rehabilitation
DX: S42.212A Unspecified displaced fracture of surgical neck of left humerus, initial encounter for closed fracture (principal); E46 Unspecified protein-calorie malnutrition; J96.11 Chronic respiratory failure with hypoxia; F11.20 Opioid dependence, uncomplicated; Z68.41 Body mass index [BMI] 40.0-44.9, adult; R53.81 Other malaise; R26.89 Other abnormalities of gait and mobility; F32.9 Major depressive disorder, single episode, unspecified; K59.00 Constipation, unspecified; F41.9 Anxiety disorder, unspecified; G89.4 Chronic pain syndrome; S09.90XA Unspecified injury of head, initial encounter; S01.81XA Laceration without foreign body of other part of head, initial encounter; M54.32 Sciatica, left side; E83.42 Hypomagnesemia; B95.62 Methicillin resistant Staphylococcus aureus infection as the cause of diseases classified elsewhere; F01.50 Vascular dementia, unspecified severity, without behavioral disturbance, psychotic disturbance, mood disturbance, and anxiety; G62.9 Polyneuropathy, unspecified; Z96.642 Presence of left artificial hip joint; R91.1 Solitary pulmonary nodule; Z87.891 Personal history of nicotine dependence; W18.39XA Other fall on same level, initial encounter; Z79.82 Long term (current) use of aspirin; Z79.899 Other long term (current) drug therapy; Y93.89 Activity, other specified; Y92.89 Other specified places as the place of occurrence of the external cause; Y99.8 Other external cause status
CPT/HCPCS: 10112